=== PATIENT | female | born 1975 | race Caucasian/White ===

== ENCOUNTER 2017-11-09 15:50 | Emergency (ER) | payer BC ==
[~2017-11-09] VITALS: Ht 111.8 cm; Wt 64.5 kg
[~2017-11-09 15:50] MED LIST: ACETAMINOPHEN325 M3 PO; AMITRIPTYLINE H10 M1 PO; BACTRIM DS 8001 TAB PO; KETOROLAC10 MG PO; KLONOPIN 0.5MG0.5 MG PO; MUCINEX FAST-MA1 TAB PO; NORCO 325 MG-51 TAB PO; PREDNISONE20 M1 PO; PREDNISONE20 MG PO; TYLENOL COLD &1 TAB PO; ULTRAM50 M1 PO; VITAMIN D 50,1.25 MG PO; ZITHROMAX Z PA250 MG PO; ZOFRAN ODT4 MG PO; ZOVIRAX 800MG800 M1 PO; ZOVIRAX400 M1 PO
[2017-11-09 16:50] LABS: EOS # 0.2 (0.04-0.40); EOS % 1.5 % (1.0-5.0); HEMATOCRIT 46.5 % (37.0-47.0); HEMOGLOBIN 15.7 g/dL (12.5-16.0); LYMPH# 3.8 (1.50-4.00); MEAN CELL VOLUME 95 fl (78-100); MEAN CORPUSCULAR HEMOGLOBIN 32 pg (27-31); MEAN CORPUSCULAR HGB CONC 34 g/dL (33-37); MEAN PLATELET VOLUME 10.1 fl (7.4-10.4); MONO # 0.6 (0.20-0.80); NEU # 5.5 (1.40-6.50); PLATELET COUNT 390 K/mm3 (130-400); RED CELL DISTRIBUTION WIDTH 13.1 % (11.5-14.5); WHITE BLOOD COUNT 10.2 K/mm3 (4.8-10.8)
[2017-11-09 17:35] VITALS: BP 104/57
== END 2017-11-09 17:44 | disposition home or self-care (01) ==
LOC: ED 15:50
PROVIDERS: Family Medicine
DX: L50.9 Urticaria, unspecified (principal)
CPT/HCPCS: J1200; J2920; J3490

== ENCOUNTER 2017-11-30 02:34 | Emergency (ER) | payer BC ==
[2017-11-30] MEDS ORDERED: DOXYCYCLINE HY100 M5 PO (02:52)
[2017-11-30 03:49] LABS: BASO # 0.1 (0.02-0.10); EOS # 0.4 (0.04-0.40); EOS % 3.7 % (1.0-5.0); HEMATOCRIT 41.2 % (37.0-47.0); HEMOGLOBIN 14.3 g/dL (12.5-16.0); LYMPH# 3.8 (1.50-4.00); MEAN CELL VOLUME 95 fl (78-100); MEAN CORPUSCULAR HEMOGLOBIN 33 pg (27-31); MEAN CORPUSCULAR HGB CONC 35 g/dL (33-37); MEAN PLATELET VOLUME 8.9 fl (7.4-10.4); MONO # 0.6 (0.20-0.80); NEU # 5.5 (1.40-6.50); PLATELET COUNT 308 K/mm3 (130-400); RED BLOOD COUNT 4.36 M/mm3 (4.10-5.30); RED CELL DISTRIBUTION WIDTH 12.6 % (11.5-14.5); WHITE BLOOD COUNT 10.3 K/mm3 (4.8-10.8)
[2017-11-30 03:58] LABS: ALBUMIN 4.3 g/dL (3.5-5.0); ALCOHOL IN-HOUSE 141 mg/dL; ALT/SGPT 21 U/L (9-52); AST-SGOT 22 U/L (14-36); BUN/CREATININE RATIO 6.2 (6.0-26.0); CALCIUM 8.8 mg/dL (8.4-10.2); CARBON DIOXIDE 24 mmol/L (22-30); GLUCOSE 89 mg/dL (65-105); SODIUM 138 mmol/L (137-145); TOTAL BILIRUBIN 0.6 mg/dL (0.2-1.3); TOTAL PROTEIN 7.7 g/dL (6.3-8.2)
[2017-11-30 04:10] LABS: URINE APPEARANCE CLEAR; URINE BILIRUBIN NEGATIVE (NEGATIVE); URINE BLOOD TRACE (NEGATIVE); URINE COLOR PALE YELLOW; URINE GLUCOSE NEGATIVE (NEGATIVE); URINE KETONE NEGATIVE (NEGATIVE); URINE LEUKOCYTE ESTERASE NEGATIVE (NEGATIVE); URINE NITRATE NEGATIVE (NEGATIVE); URINE PROTEIN(semi-quant) NEGATIVE (NEGATIVE); URINE UROBILINOGEN NORMAL (NORMAL); URINE WBC 0-1 /hpf (0-3)
[2017-11-30 04:13] LABS: ACETAMINOPHEN < 4 ug/mL (10-30)
== END 2017-11-30 07:44 | disposition home or self-care (01) ==
LOC: ED 02:34
PROVIDERS: Family Medicine
DX: F32.9 Major depressive disorder, single episode, unspecified (principal); F10.120 Alcohol abuse with intoxication, uncomplicated; Y90.6 Blood alcohol level of 120-199 mg/100 ml; A77.0 Spotted fever due to Rickettsia rickettsii; S50.811A Abrasion of right forearm, initial encounter; S60.511A Abrasion of right hand, initial encounter
CPT/HCPCS: J7030

== ENCOUNTER 2024-01-05 21:53 | Emergency (ER) | payer BC ==
[~2024-01-05 21:53] MED LIST changes: +DOXYCYCLINE HY100 M5 PO
[2024-01-05 22:05] VITALS: BP 143/97
[2024-01-05] MEDS ORDERED: Famotidine 20 MG TAB PO ONE (22:15)
[2024-01-05] MEDS ORDERED: diphenhydrAMINE 25 MG CAP PO ONE (22:15)
[2024-01-05] MEDS ORDERED: methylPREDNISolone Sod Succ 125 MG/2 ML VIAL IM ONE (22:15)
[2024-01-05] MEDS ORDERED: diphenhydrAMINE 50 MG/ML 1 ML VIAL IM ONE (22:30)
[2024-01-05] MEDS ORDERED: PREDNISONE20 MG PO (23:18)
== END 2024-01-05 23:36 | disposition home or self-care (01) ==
LOC: ED 21:53
DX: S60.562A Insect bite (nonvenomous) of left hand, initial encounter (principal); T78.40XA Allergy, unspecified, initial encounter; W57.XXXA Bitten or stung by nonvenomous insect and other nonvenomous arthropods, initial encounter
CPT/HCPCS: J1200; J2919

== ENCOUNTER 2024-08-24 12:15 | Emergency (ER) | payer BC ==
[~2024-08-24] VITALS: Ht 177.8 cm; Wt 75.0 kg
[2024-08-24] MEDS ORDERED: diphenhydrAMINE 50 MG/ML 1 ML VIAL IV ONE (12:45)
[2024-08-24] MEDS ORDERED: Famotidine 20 MG/2 ML VIAL IV ONE (12:45)
[2024-08-24] MEDS ORDERED: methylPREDNISolone Sod Succ 125 MG/2 ML VIAL IV ONE (12:45)
[2024-08-24] MEDS ORDERED: Albuterol/Ipratropium 3 MG-0.5 MG/3 ML Neb Soln IH ONE (12:45)
[2024-08-24] MEDS ORDERED: QBRELIS1 MG/1 ML PO (12:51)
[2024-08-24] MEDS ORDERED: [UNRECOGNIZED DRUG - OTHER] PO (12:52)
[2024-08-24 15:14] VITALS: BP 133/76
== END 2024-08-24 15:16 | disposition home or self-care (01) ==
LOC: ED 12:15
DX: T78.40XA Allergy, unspecified, initial encounter (principal); S30.861A Insect bite (nonvenomous) of abdominal wall, initial encounter; T14.8XXA Other injury of unspecified body region, initial encounter; W57.XXXA Bitten or stung by nonvenomous insect and other nonvenomous arthropods, initial encounter
CPT/HCPCS: J1200; J2919; J3490